=== PATIENT | female | born 1995 | race Caucasian/White ===

== ENCOUNTER 2018-08-11 00:58 | Emergency (ER) | payer MEDICAID ==
[2018-08-11] MEDS ORDERED: Ondansetron 4 MG/2 ML SDV IVPUSH ONE (01:33)
[2018-08-11] MEDS ORDERED: cefTRIAXone 1 GM in Sodium Chloride 0.9% 100 ML IV ONE (01:33)
[2018-08-11] MEDS ORDERED: Sodium Chloride 0.9% 10 ML Syringe FLUSH PRN (01:33)
[2018-08-11] MEDS ORDERED: Lactated Ringers 1,000 ML IV ONE (01:33)
[2018-08-11] MEDS ORDERED: Pantoprazole 40 MG Vial IVPUSH ONE (01:33)
[2018-08-11] MEDS ORDERED: Famotidine 20 MG/2 ML SDV IVPUSH ONE (01:33)
[2018-08-11] MEDS ORDERED: metroNIDAZOLE/Normal Saline 500 MG in Premix Bag 1 BAG IV ONE (01:33)
--- NOTE | 2018-08-11 01:33 | EDM.PDOC ---
ED HPI GENERAL MEDICAL PROBLEM - General Chief Complaint: General Stated Complaint: R abdominal pain Time Seen by Provider: 08/11/18 01:20 Source of Information: Reports: Patient, Old Records ([facility] chart/EMR) History Limitations: Reports: No Limitations - History of Present Illness INITIAL COMMENTS - FREE TEXT/NARRATIVE: The patient drove herself to the emergency room via private automobile for evaluation of progressive intermittent abdominal pain initially starting in the right CVA area at about 5 PM 4 days ago. She did have some possible urinary frequency at that time but no gross hematuria, colic, or other UTI symptoms. Note that she did have her IUD removed on 07/24/18 and is just completing her menses. Patient has had some nausea with 2 episodes of emesis with last episode at 9 PM this evening some heartburn type symptoms at about 11 PM. Symptoms did increase yesterday morning with discomfort mainly in the right lower quadrant at this time. No recent history of diarrhea, melena, gross hematochezia, or any food intolerance, including fatty foods, etc.. The patient also denies any recent cough, wheezing, dyspnea, etc. with possible fever, however she has not measured her temperature. She did take 5 ibuprofen at 15:30 hours Onset: Gradual Onset Date: 08/07/18 Onset Time: 17:00 Duration: Getting Worse, Intermittent Location: Reports: Abdomen. Denies: Head, Face, Neck, Chest, Back, Pelvis, Upper Extremity, Left, Upper Extremity, Right, Radiates to Quality: Reports: Ache, Sharp Severity: Moderate Improves with: Reports: None Worsens with: Reports: None Context: Reports: Other (As above). Denies: Sick Contact, Trauma Associated Symptoms: Reports: Fever/Chills (Possible), Headaches (Occasional), Nausea/Vomiting. Denies: Confusion, Chest Pain, Cough, Diaphoresis, Loss of Appetite, Malaise, Rash, Seizure, Shortness of Breath, Syncope, Weakness Treatments ROOMS DIRECTOR: Reports: NSAIDS Right Abdominal Pain Score (Numeric/FACES): 6 - Related Data Allergies Allergy/AdvReac Type Severity Reaction Status Date / Time No Known Allergies Allergy Verified 08/11/18 01:06 Home Meds: Home Meds hydrOXYzine HCl [Atarax] 25 mg PO BID PRN 08/11/18 [History] Past Medical History HEENT History: Reports: None. Denies: Allergic Rhinitis, Hard of Hearing, Impaired Vision, Otitis Media, Retinal Detachment Cardiovascular History: Reports: Syncope, Other (See Below). Denies: Afib, Aneurysm, Arrhythmia, Blood Clots/VTE/DVT, CAD, High Cholesterol, Hypertension, [place], PVD Other Cardiovascular History: Possible near syncopal episode in April 2018 without evaluation or workup. Patient does not her cholesterol status. Respiratory History: Reports: Intubation, Previous. Denies: Asthma, Bronchitis , Recurrent, COPD, Intubation, Difficult, PE, Pneumothorax, Sleep Apnea Gastrointestinal History: Reports: None, Cholelithiasis, Chronic Diarrhea. 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 Denies: Dysfunctional Uterine Bleeding, Endometriosis, Spontaneous : 1 Para: 1 LMP (Approximate): Other (See Below) Other WOOD CARVING MACHINE OPERATOR History: Just completing menses with IUD removed on 07/24/18. Full term without complications during or delivery. Musculoskeletal History: Reports: None, Back Pain, Chronic, Osteoarthritis. Denies: Arthritis, Fracture, Gout, Neck Pain, Chronic, RA, SLE Neurological History: Reports: None. Denies: Cerebral Aneurysms, Concussion, CVA, Headaches, Chronic, Head Trauma, Migraines, MS, Parkinson's, Seizure, TIA, Vertigo Psychiatric History: Reports: Anxiety, Depression. Denies: Abuse, Victim of, ADD, ADHD, Addiction, Psych Hospitalization(s), PTSD, Suicide Attempt, Suicidal Ideation Endocrine/Metabolic History: Reports: None. Denies: Diabetes, Gestational, Diabetes, Type I, Diabetes, Type II, Diabetes Mellitus, Type 3c, Hypothyroidism , IDDM Hematologic History: Reports: None. Denies: Anemia, Blood Transfusion(s), Iron Deficiency Immunologic History: Reports: None. Denies: AIDS, HIV, SLE Oncologic (Cancer) History: Reports: None. Denies: Basal Cell Carcinoma, Cervix , Hodgkin's Lymphoma, Leukemia, Lymphoma, Malignant Melanoma, Non-Hodgkin's Lymphoma, Squamous Cell Carcinoma Dermatologic History: Reports: Other (See Below). Denies: Eczema, Psoriasis Other Dermatologic History: Acne - Infectious Disease History Infectious Disease History: Reports: None. Denies: C-Difficile, Chicken Pox, Measles, Meningitis, Mononucleosis, MRSA, Mumps, Pertussis (Whooping Cough), Rheumatic Fever, Rubella, Scarlet Fever, Shingles, VRE - Past Surgical History Head Surgeries/Procedures: Reports: None HEENT Surgical History: Reports: Adenoidectomy, Tonsillectomy, Other (See Below) . Denies: Cataract Surgery, Eye Surgery, Laser Surgery, LASIK, Myringotomy w Tube(s), Naso-Sinus Surgery, Oral Surgery Other HEENT Surgeries/Procedures: Tonsillectomy and adenoidectomy at age 9 on 02/18/05. [place] teeth extraction 2014. Cardiovascular Surgical History: Reports: None. Denies: Varicose Respiratory Surgical History: Reports: None. Denies: Thoracentesis GI Surgical History: Reports: Cholecystectomy, Other (See Below). Denies: Appendectomy, Colonoscopy, EGD, Hernia, Abdominal, Hernia, Inguinal, Hernia Repair/Other Other GI Surgeries/Procedures: Laparoscopic cholecystectomy in May 2016. Female Surgical History: Reports: Other (See Below). Denies: Breast Biopsy, Section, D&C, Tubal Ligation Other Female Surgeries/Procedures: IUD removal on 07/24/18. Endocrine Surgical History: Reports: None. Denies: Thyroid Biopsy Neurological Surgical History: Reports: None. Denies: C-Spine, Discectomy, Laminectomy, Lumbar Spine, Sacral Spine, Spinal Fusion, Thoracic Spine, Vertebroplasty Musculoskeletal Surgical History: Reports: Other (See Below). Denies: Arthroscopic Procedure, Carpal Tunnel, Ganglion Cyst, Joint Replacement, ORIF, Shoulder Surgery Other Musculoskeletal Surgeries/Procedures:: Bilateral gastrocnemius lengthening at about age 6 Oncologic Surgical History: Reports: None Dermatological Surgical History: Reports: None - Past Imaging History Past Imaging History: Reports: CAT Scan (CT of the abdomen and pelvis on .) Social & Family History - Family History Cardiac: Reports: CAD, Other (See Below) Other Cardiac Family History: Coronary disease and paternal grandfather maternal great aunt and other maternal and paternal family members GI: Reports: Cholelithiasis, Hepatitis, Irritable Bowel Syndrome, Other (See Below) Other GI Family History: Hepatitis in mother, uncle, and maternal grandfather. Mother with cholelithiasis and irritable bowel syndrome. Psychiatric: Reports: Anxiety, Depression, Other (See Below) Other Psychiatric Family History: Anxiety depression disorder with alcohol abuse in mother Endocrine/Metabolic: Reports: Diabetes, Gestational, Diabetes, type II, Other ( See Below) Other Endocrine/Metabolic Family History: Maternal grandfather with AODM. Mother with gestational diabetes. Oncologic: Reports: Breast, Lung, Uterine, Other (See Below) Other Oncologic Family History: Maternal grandmother with uterine and breast cancer. Maternal grandfather with lung cancer. - Tobacco Use Smoking Status *Q: Current Every Day Smoker Tobacco Use Within Last Twelve Months: Cigarettes Years of Tobacco use: 5 Packs/Tins Daily: 0.3 Packs/Tins Daily Comment: Started smoking at age 17 with maximum use of half pack per day Used Tobacco, but Quit: No Smoking Cessation Information Provided To Patient: Yes Second Hand Smoke Exposure: Yes Source of Second Hand Smoke Exposure: Significant other and brother Second Hand Smoke Education Provided: Yes - Caffeine Use Caffeine Use: Reports: Coffee (1 Cup per week), Energy Drinks (1 per day), Soda (3 sodas per day). Denies: Tea - Alcohol Use Alcohol Use History: No Days Per Week of Alcohol Use: 0 Number of Drinks Per Day: 0 Total Drinks Per Week: 0 Alcohol Use in Last Twelve Months: No - Recreational Drug Use Recreational Drug Use: Yes Drug Use in Last 12 Months: Yes Recreational Drug Type: Reports: Amphetamines (Speed), Marijuana/Hashish ( Started at age 18 2 times per week), Methamphetamine (Experimentation in July 2018). 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 ED EXAM, GENERAL - Physical Exam Exam: See Below Exam Limited By: No Limitations General Appearance: Alert, WD/WN, No Apparent Distress, Anxious (Mild to moderate) Eye Exam: Bilateral Eye: EOMI, Normal Inspection (No nystagmus), PERRL Ears: Normal External Exam, Normal Canal, Hearing Grossly Normal, Normal TMs Nose: Normal Inspection, Normal Mucosa, No Blood Throat/Mouth: Normal Inspection, Normal Lips, Normal Teeth, Normal Gums, Normal Oropharynx, Normal Voice, No Airway Compromise. No: Dysphagia, Perioral Cyanosis Head: Atraumatic, Normocephalic. No: Facial Swelling, Facial Tenderness Neck: Normal Inspection, Supple, Non-Tender, Full Range of Motion. No: Lymphadenopathy (L), Lymphadenopathy (R), Thyromegaly Respiratory/Chest: No Respiratory Distress, Lungs Clear, Normal Breath Sounds, No Accessory Muscle Use, Chest Non-Tender. No: Pleural Rub, Retractions Cardiovascular: Normal Peripheral Pulses, Regular Rate, Rhythm, No Edema, No Gallop, No JVD, No Murmur, No Rub. No: Gallop/S3, Gallop/S4, Friction Rub Peripheral Pulses: 2+: Radial (L), Radial (R), Dorsalis Pedis (L), Dorsalis Pedis (R) GI/Abdominal: Normal Bowel Sounds, No Organomegaly, No Distention, No Abnormal Bruit, No Mass, Pelvis Stable, Tender (Mild right lower quadrant palpation pain) . No: Guarding, Rigid, Rebound, Hernia (Female) Exam: Deferred Rectal (Female) Exam: Normal Exam, Normal Rectal Tone, Heme - Stool. No: Black Stool, Bloody Stool, Fecal Impaction, Hemorrhoids, Tenderness (No Thomas space tenderness) Back Exam: Normal Inspection, Full Range of Motion. No: CVA Tenderness (L), CVA Tenderness (R), Muscle Spasm Extremities: Normal Inspection, Normal Range of Motion, Non-Tender, No Pedal Edema, Normal Capillary Refill. No: Kriss's Sign Neurological: Alert, Oriented, CN II-XII Intact, Normal Cognition, Normal Gait, No Motor/Sensory Deficits Psychiatric: Anxious (Mild to moderate), Depressed Mood (Borderline) Skin Exam: Warm, Dry, Intact, Normal Color, No Rash, Other (Facial acne scars). No: Diaphoretic, Ecchymosis, Jaundice, Pallor, Petechiae, Wound/Incision Lymphatic: No Adenopathy Course - Vital Signs Last Recorded V/S: Last Vital Signs Temp 36.6 C 08/11/18 00:59 Pulse 82 08/11/18 01:09 Resp 16 08/11/18 01:09 BP 129/73 08/11/18 01:20 Pulse Ox 100 08/11/18 00:59 Vital Signs - 24 hr 08/11/18 08/11/18 08/11/18 00:59 01:09 01:20 Temperature [ 36.6 C Temporal] Pulse, 82 82 Peripheral [ Pulse Oximetry] Respiratory 16 16 Rate Blood Pressure 133/98 H 134/94 H 129/73 [Left] O2 Sat by Pulse 100 Oximetry - Orders/Labs/Meds Orders: Active Orders 24 hr Category Date Time Status Peripheral IV Care [RC] . DIRECTED Care 08/11/18 01:34 Active Abdomen Series w Chest 1V [CR] Stat Exams 08/11/18 01:34 Taken CULTURE URINE [RM] Stat Lab 08/11/18 01:45 Received Obtain Past Medical Record [OM.PC] Urgent Oth 08/11/18 01:34 Active Peripheral IV Insertion Adult [OM.PC] Stat Oth 08/11/18 01:34 Ordered Resuscitation Status Stat Resus Stat 08/11/18 01:33 Ordered Labs: Laboratory Tests 08/11/18 08/11/18 08/11/18 Range/Units 01:33 01:45 01:45 WBC 7.1 (4.0-10.2) K/uL RBC 5.21 H (3.77-5.09) M/uL Hgb 16.3 H D (11.7-15.5) g/dL Hct 45.7 (34.0-46.0) % MCV 87.7 (84.0-98.0) fL MCH 31.3 (28.2-33.3) pg MCHC 35.7 (31.7-36.0) g/dL RDW 12.9 (11.2-14.1) % Plt Count 237 (150-350) K/uL Neut % (Auto) 62.1 (45.0-80.0) % Lymph % (Auto) 25.8 (10.0-50.0) % [place] % (Auto) 8.1 (2.0-14.0) % Eos % (Auto) 3.7 (0.0-5.0) % Baso % (Auto) 0.3 (0.0-2.0) % Neut # (Auto) 4.39 (1.40-7.00) K/uL Lymph # (Auto) 1.82 (0.50-3.50) K/uL [place] # (Auto) 0.57 (0.00-1.00) K/uL Eos # (Auto) 0.26 (0.00-0.50) K/uL Baso # (Auto) 0.02 (0.00-0.20) K/uL PT (9.5-12.0) SEC INR APTT (21.0-31.3) SEC Sodium (136-145) mmol/L Potassium (3.5-5.1) mmol/L Chloride (98-107) mmol/L Carbon Dioxide (21.0-32.0) mmol/L BUN (7-18) mg/dL Creatinine (0.51-1.17) mg/dL Est Cr Clr Drug Dosing mL/min Estimated GFR (MDRD) mL/min Glucose (74-106) mg/dL Lactic Acid (0.4-2.0) mmol/L Uric Acid (2.6-7.2) mg/dL Calcium (8.5-10.1) mg/dL Magnesium (1.8-2.4) mg/dL Total Bilirubin (0.2-1.0) mg/dL AST (15-37) U/L ALT (12-78) U/L Alkaline Phosphatase (46-116) IU/L Total Protein (6.4-8.2) g/dL Albumin (3.4-5.0) g/dL Amylase 44 (25-115) U/L Lipase (73-393) U/L HCG, Qual (NEGATIVE) Specimen Type Urinvoid Urine Color Yellow Urine Appearance Clear Urine pH 5.5 (5.0-9.0) Ur Specific [place] 1.025 (1.005-1.030) Urine Protein Negative (NEGATIVE) mg/dL Urine Glucose (UA) Negative (NEGATIVE) mg/dL Urine Ketones Trace H (NEGATIVE) mg/dL Urine Occult Blood Moderate H (NEGATIVE) Urine Nitrite Negative (NEGATIVE) Urine Bilirubin Negative (NEGATIVE) Urine Urobilinogen 0.2 (0.2-1.0) E.U./dL Ur Leukocyte Esterase Negative (NEGATIVE) Urine RBC 0-5 /HPF Urine WBC 5-10 H /HPF Ur Epithelial Cells Few /LPF Urine Bacteria Few (NONE TO FEW) /HPF Hyaline Casts Rare H (NEGATIVE) /LPF Urine Mucus Moderate H (NEGATIVE) /LPF 08/11/18 08/11/18 08/11/18 Range/Units 01:45 01:45 01:45 WBC (4.0-10.2) K/uL RBC (3.77-5.09) M/uL Hgb (11.7-15.5) g/dL Hct (34.0-46.0) % MCV (84.0-98.0) fL MCH (28.2-33.3) pg MCHC (31.7-36.0) g/dL RDW (11.2-14.1) % Plt Count (150-350) K/uL Neut % (Auto) (45.0-80.0) % Lymph % (Auto) (10.0-50.0) % [place] % (Auto) (2.0-14.0) % Eos % (Auto) (0.0-5.0) % Baso % (Auto) (0.0-2.0) % Neut # (Auto) (1.40-7.00) K/uL Lymph # (Auto) (0.50-3.50) K/uL [place] # (Auto) (0.00-1.00) K/uL Eos # (Auto) (0.00-0.50) K/uL Baso # (Auto) (0.00-0.20) K/uL PT 11.3 (9.5-12.0) SEC INR 1.1 APTT 31.9 H (21.0-31.3) SEC Sodium 137 (136-145) mmol/L Potassium 3.0 L (3.5-5.1) mmol/L Chloride 100 (98-107) mmol/L Carbon Dioxide 24.8 (21.0-32.0) mmol/L BUN 12 (7-18) mg/dL Creatinine 0.75 (0.51-1.17) mg/dL Est Cr Clr Drug Dosing 120.70 mL/min Estimated GFR (MDRD) > 60 mL/min Glucose 94 (74-106) mg/dL Lactic Acid 0.8 (0.4-2.0) mmol/L Uric Acid 3.1 (2.6-7.2) mg/dL Calcium 9.3 (8.5-10.1) mg/dL Magnesium 2.0 (1.8-2.4) mg/dL Total Bilirubin 0.5 (0.2-1.0) mg/dL AST 41 H (15-37) U/L ALT 58 (12-78) U/L Alkaline Phosphatase 98 (46-116) IU/L Total Protein 8.4 H (6.4-8.2) g/dL Albumin 4.5 (3.4-5.0) g/dL Amylase (25-115) U/L Lipase 54 L (73-393) U/L HCG, Qual (NEGATIVE) Specimen Type Urine Color Urine Appearance Urine pH (5.0-9.0) Ur Specific [place] (1.005-1.030) Urine Protein (NEGATIVE) mg/dL Urine Glucose (UA) (NEGATIVE) mg/dL Urine Ketones (NEGATIVE) mg/dL Urine Occult Blood (NEGATIVE) Urine Nitrite (NEGATIVE) Urine Bilirubin (NEGATIVE) Urine Urobilinogen (0.2-1.0) E.U./dL Ur Leukocyte Esterase (NEGATIVE) Urine RBC /HPF Urine WBC /HPF Ur Epithelial Cells /LPF Urine Bacteria (NONE TO FEW) /HPF Hyaline Casts (NEGATIVE) /LPF Urine Mucus (NEGATIVE) /LPF 08/11/18 Range/Units 01:45 WBC (4.0-10.2) K/uL RBC (3.77-5.09) M/uL Hgb (11.7-15.5) g/dL Hct (34.0-46.0) % MCV (84.0-98.0) fL MCH (28.2-33.3) pg MCHC (31.7-36.0) g/dL RDW (11.2-14.1) % Plt Count (150-350) K/uL Neut % (Auto) (45.0-80.0) % Lymph % (Auto) (10.0-50.0) % [place] % (Auto) (2.0-14.0) % Eos % (Auto) (0.0-5.0) % Baso % (Auto) (0.0-2.0) % Neut # (Auto) (1.40-7.00) K/uL Lymph # (Auto) (0.50-3.50) K/uL [place] # (Auto) (0.00-1.00) K/uL Eos # (Auto) (0.00-0.50) K/uL Baso # (Auto) (0.00-0.20) K/uL PT (9.5-12.0) SEC INR APTT (21.0-31.3) SEC Sodium (136-145) mmol/L Potassium (3.5-5.1) mmol/L Chloride (98-107) mmol/L Carbon Dioxide (21.0-32.0) mmol/L BUN (7-18) mg/dL Creatinine (0.51-1.17) mg/dL Est Cr Clr Drug Dosing mL/min Estimated GFR (MDRD) mL/min Glucose (74-106) mg/dL Lactic Acid (0.4-2.0) mmol/L Uric Acid (2.6-7.2) mg/dL Calcium (8.5-10.1) mg/dL Magnesium (1.8-2.4) mg/dL Total Bilirubin (0.2-1.0) mg/dL AST (15-37) U/L ALT (12-78) U/L Alkaline Phosphatase (46-116) IU/L Total Protein (6.4-8.2) g/dL Albumin (3.4-5.0) g/dL Amylase (25-115) U/L Lipase (73-393) U/L HCG, Qual Negative (NEGATIVE) Specimen Type Urine Color Urine Appearance Urine pH (5.0-9.0) Ur Specific [place] (1.005-1.030) Urine Protein (NEGATIVE) mg/dL Urine Glucose (UA) (NEGATIVE) mg/dL Urine Ketones (NEGATIVE) mg/dL Urine Occult Blood (NEGATIVE) Urine Nitrite (NEGATIVE) Urine Bilirubin (NEGATIVE) Urine Urobilinogen (0.2-1.0) E.U./dL Ur Leukocyte Esterase (NEGATIVE) Urine RBC /HPF Urine WBC /HPF Ur Epithelial Cells /LPF Urine Bacteria (NONE TO FEW) /HPF Hyaline Casts (NEGATIVE) /LPF Urine Mucus (NEGATIVE) /LPF Microbiology 08/11/18 01:55 Stool Occult Blood (JE) - Final Stool / Feces NEGATIVE OCCULT BLOOD Urine specimen set up for culture and sensitivity. Meds: Medications Discontinued Medications Generic Name Dose Route Start Last Admin Trade Name Katty PRN Reason Stop Dose Admin Famotidine 40 mg 08/11/18 01:33 08/11/18 02:03 Pepcid IVPUSH 08/11/18 01:34 40 mg ONETIME ONE Administration Lactated Ringer's 1,000 mls @ 999 mls/hr 08/11/18 01:33 08/11/18 02:16 Ringers, Lactated IV 08/11/18 02:33 999 mls/hr .BOLUS ONE Administration Ondansetron HCl 4 mg 08/11/18 01:33 08/11/18 02:03 Zofran IVPUSH 08/11/18 01:34 4 mg ONETIME ONE Administration Pantoprazole Sodium 40 mg 08/11/18 01:33 08/11/18 02:03 Protonix Iv IVPUSH 08/11/18 01:34 40 mg ONETIME ONE Administration Potassium Chloride 40 meq 08/11/18 02:43 08/11/18 02:56 Klor-Con M20 PO 08/11/18 02:44 40 meq ONETIME ONE Administration Sodium Chloride 10 ml 08/11/18 01:33 08/11/18 02:17 Saline Flush FLUSH 10 ml ASDIRECTED PRN Administration Keep Vein Open - Radiology Interpretation Free Text/Narrative:: Acute abdominal x-ray shows evidence of moderate diffuse stool with mild nonspecific increased bowel gaseous pattern with no intra-abdominal calcifications, free air, fluid levels, ileus, obstruction, pulmonary infiltrates, cardiomegaly, pneumothorax, etc. Note surgical clips in right upper quadrant consistent with cholecystectomy. Departure - Departure Time of Disposition: 03:30 Disposition: Home, Self-Care 01 Condition: Good Clinical Impression: Tobacco abuse counseling, Illicit drug use, continuous, Mixed anxiety depressive disorder, Elevated blood pressure reading, Hypokalemia, Elevated LFTs Abdominal pain Qualifiers: Abdominal location: right lower quadrant Qualified Code(s): R10.31 - Right lower quadrant pain Osteoarthritis Qualifiers: Osteoarthritis location: multiple joints Osteoarthritis type: primary Qualified Code(s): M15.0 - Primary generalized (osteo)arthritis - Discharge Information *PRESCRIPTION DRUG MONITORING PROGRAM REVIEWED*: Not Applicable *COPY OF PRESCRIPTION DRUG MONITORING REPORT IN PATIENT CHAS: Not Applicable Instructions: Steps to Quit Smoking, [id number], Viral Gastroenteritis, Adult , [id number], Abdominal Pain, Adult, [id number], Steps to Quit Smoking Referrals: Ivy Cantu, TECHNOLOGY APPLICATIONS TEACHER [Primary Care Provider] - Forms: ED Department Discharge, ED Return to Work/School Form Additional Instructions: 1. Follow up with your regular provider in 5-7 days as directed for reevaluation and recommended repeat CBC and comprehensive metabolic panel. Bring these discharge instructions with you to that visit.. 2. [place] diet including encouragement of oral fluids such as sports drinks, etc. for 24-48 hours as directed. Advance to regular diet as tolerated thereafter. 3. Work excuse- See Form 4. NEVER EXCEED THE RECOMMENDED DOSE OF MEDICINES, INCLUDING OTC MEDICINES, ETC. 5. Stop all tobacco use CYNTHIA as directed/per provided information and consider contacting Quit LIne, etc.. 6. Discontinue all illicit drug and energy drink use CYNTHIA as discussed 7. Continue to observe your blood pressure closely through your regular provider 8. Immediately after this visit verify that your cellular telephone's voicemail has been activated and is empty. Also verify that your home telephone 's answering machine is operating properly and has space to receive messages. Note that it is sometimes necessary for us to be able to contact you at a later date to discuss your medical care. 9. Please remember that we are ALWAYS here for you and want to answer any questions you may have. Feel free to call the hospital any time and we call you back CYNTHIA. - Problem List & Annotations (1) Abdominal pain SNOMED Code(s): 52092827 Code(s): R10.9 - UNSPECIFIED ABDOMINAL PAIN Status: Acute Priority: High Onset Date: ~08/07/18 Annotation/Comment:: Abdominal pain likely secondary to viral gastroenteritis. Note some recent emesis with improved symptoms at discharge. No direct indication of appendicitis at this time with no rebound, fever, or leukocytosis. Mild polycythemia likely secondary to borderline dehydration with 1 L lactated Ringer's IV bolus given in the emergency room. Symptomatic relief as per discharge instructions. The patient was cautioned not to exceed recommended doses of ibuprofen, etc. High-dose IV Pepcid and IV Protonix given in the emergency room. No nausea at discharge. Work excuse provided. Note the patient did have similar type symptoms in December [address] scan of the abdomen and pelvis at that time. Qualifiers: Abdominal location: right lower quadrant Qualified Code(s): R10.31 - Right lower quadrant pain (2) Illicit drug use, continuous SNOMED Code(s): 949221871 Code(s): F19.90 - OTHER PSYCHOACTIVE SUBSTANCE USE, UNSPECIFIED, UNCOMPLICATED Status: Chronic Priority: Medium Annotation/Comment:: Discontinuation of all illicit drug use including marijuana, methamphetamine, etc. strongly encouraged secondary to her elevated blood pressure today, anxiety depression disorder, etc. (3) Mixed anxiety depressive disorder SNOMED Code(s): 495903182 Code(s): F41.8 - OTHER SPECIFIED ANXIETY DISORDERS Status: Chronic Priority: Medium Annotation/Comment:: Continue to observe closely by her regular provider. Stable by history, although moderate control based on today's exam. (4) Osteoarthritis SNOMED Code(s): 274521249 Code(s): M19.90 - UNSPECIFIED OSTEOARTHRITIS, UNSPECIFIED SITE Status: Chronic Priority: Medium Annotation/Comment:: Stable by history Qualifiers: Osteoarthritis location: multiple joints Osteoarthritis type: primary Qualified Code(s): M15.0 - Primary generalized (osteo)arthritis (5) Tobacco abuse counseling SNOMED Code(s): 067256002, 003859508, 362638476 Code(s): Z71.6 - TOBACCO ABUSE COUNSELING Status: Chronic Priority: Medium Annotation/Comment:: Tobacco cessation strongly encouraged with information provided at discharge (6) Elevated blood pressure reading SNOMED Code(s): 82966558 Code(s): R03.0 - ELEVATED BLOOD-PRESSURE READING, W/O DIAGNOSIS OF HTN Status: Acute Priority: High Onset Date: 08/11/18 Annotation/Comment:: Previous history of hypertension. Patient strongly encouraged to discontinue illicit drug use and decrease caffeine intake, including energy drinks. (7) Hypokalemia SNOMED Code(s): 33210130 Code(s): E87.6 - HYPOKALEMIA Status: Acute Priority: High Onset Date: 08/11/18 Annotation/Comment:: Lactated Ringer's given as above. One dose of potassium chloride also given orally. Sports drinks during the next 48 hours. Close follow-up by regular provider. (8) Elevated LFTs SNOMED Code(s): 883980194, 815236119 Code(s): R94.5 - ABNORMAL RESULTS OF LIVER FUNCTION STUDIES Status: Acute Priority: Medium Onset Date: 08/11/18 Annotation/Comment:: Mild LFTs elevation of unknown etiology. Observe for now. Close follow-up by regular provider. - Problem List Review Problem List Initiated/Reviewed/Updated: Yes - My Orders Last 24 Hours: My Active Orders 08/11/18 01:33 Resuscitation Status Stat 08/11/18 01:34 Peripheral IV Care [RC] . DIRECTED Abdomen Series w Chest 1V [CR] Stat Obtain Past Medical Record [OM.PC] Urgent Peripheral IV Insertion Adult [OM.PC] Stat 08/11/18 01:45 CULTURE URINE [RM] Stat - Assessment/Plan Last 24 Hours: My Active Orders 08/11/18 01:33 Resuscitation Status Stat 08/11/18 01:34 Peripheral IV Care [RC] . DIRECTED Abdomen Series w Chest 1V [CR] Stat Obtain Past Medical Record [OM.PC] Urgent Peripheral IV Insertion Adult [OM.PC] Stat 08/11/18 01:45 CULTURE URINE [RM] Stat Assessment:: As above Plan: As above. Extensive precautions were given to the patient, who is in agreement with the treatment plan. See Patient Instructions for further treatment and plan.
[2018-08-11 02:24] LABS: CHLORIDE,CL 100 mmol/L (98-107); SODIUM,NA 137 mmol/L (136-145)
[2018-08-11] MEDS ORDERED: Potassium Chloride 20 MEQ Tab.ER PO ONE (02:43)
== END 2018-08-11 03:30 | disposition home or self-care (01) ==
LOC: LL.ED 00:58
DX: R10.31 Right lower quadrant pain (principal); M15.0 Primary generalized (osteo)arthritis; F17.210 Nicotine dependence, cigarettes, uncomplicated; F41.8 Other specified anxiety disorders; R03.0 Elevated blood-pressure reading, without diagnosis of hypertension; E87.6 Hypokalemia; R79.89 Other specified abnormal findings of blood chemistry; F19.90 Other psychoactive substance use, unspecified, uncomplicated
CPT/HCPCS: 36415; 74022; 80053; 81001; 82150; 82272; 83605; 83690; 83735; 84550; 84703; 85025; 85610; 85730; 87086; 96361; 96374; 96375; 99284-25; A9270-GY; C9113; J2405; J3490; J7120